=== PATIENT | male | born 1945 | race Caucasian/White ===

== ENCOUNTER 2019-10-02 10:46 | Observation (INO) ==
[2019-10-02 12:02] LABS: Immature Granulocytes % 0.9 % (0-4); Mean Corpuscular Volume 97.3 fL (83.0-100.0)
[2019-10-02 12:04] LABS: BUN/Creatinine Ratio 9 (6-26); Basophils # 0.1 K/mcL (0.0-0.2); Basophils % 2.1 %; Blood Urea Nitrogen 28 mg/dL (8-23); Calcium 8.1 mg/dL (8.6-10.3); Carbon Dioxide 21 mEq/L (23-29); Chloride 108 mEq/L (98-107); Eosinophils # 0.2 K/mcL (0.0-0.6); Eosinophils % 6.8 %; Glucose 88 mg/dL (70-105); Hematocrit 28.7 % (37.5-50.1); Hemoglobin 9.2 g/dL (12.9-16.9); Immature Platelets 7.9 % (1.1-6.1); Lymphocytes # 0.7 K/mcL (0.6-4.6); Lymphocytes % 19.2 %; Mean Corpuscular HGB Conc 32.1 g/dL (31.6-35.5); Mean Corpuscular Hemoglobin 31.2 pg (28.0-33.3); Mean Platelet Volume 14.4 fL (9.4-12.4); Monocytes # 0.6 K/mcL (0.0-1.3); Monocytes % 16.3 %; Neutrophils # 1.9 K/mcL (1.6-8.9); Osmolality,Calculated 293 (280-300); Potassium 4.1 mEq/L (3.5-5.1); Red Blood Count 2.95 M/mcL (4.19-5.50); Red Cell Distribution Width 15.5 % (11.5-14.5); Segmented Neutrophils % 54.7 %; Sodium 139 mEq/L (136-145); Troponin I < 0.03 ng/mL (< 0.04); White Blood Count 3.4 K/mcL (4.3-11.1); eGFR For African Americans 25 (> 60); eGFR For Non-African Americans 21 (> 60)
[2019-10-02 12:31] LABS: Platelet Count 38 K/mcL (140-400)
[2019-10-02] MEDS ORDERED: Naloxone 0.4 MG/ML INJ IVP PRN (14:47)
[2019-10-02] MEDS ORDERED: 0.9 % Sodium Chloride 1,000 ML IVC SCH (15:00)
[2019-10-02] MEDS: *HR* Heparin 5,000 UNIT/ML VIAL SQ SCH (16:30)
[2019-10-03 01:55] LABS: Red Cell Distribution Width 15.5 % (11.5-14.5)
[2019-10-03 01:57] LABS: Hematocrit 25.1 % (37.5-50.1); Hemoglobin 8.1 g/dL (12.9-16.9); Immature Platelets 9.9 % (1.1-6.1); Lymphocytes # 0.5 K/mcL (0.6-4.6); Mean Corpuscular HGB Conc 32.3 g/dL (31.6-35.5); Mean Corpuscular Hemoglobin 30.7 pg (28.0-33.3); Mean Corpuscular Volume 95.1 fL (83.0-100.0); Red Blood Count 2.64 M/mcL (4.19-5.50); White Blood Count 2.1 K/mcL (4.3-11.1)
[2019-10-03 02:21] LABS: Calcium 7.5 mg/dL (8.6-10.3); Magnesium 1.3 mg/dL (1.6-2.6); Phosphorous 3.4 mg/dL (2.7-4.5)
[2019-10-03 02:28] LABS: Platelet Count 38 K/mcL (140-400)
[2019-10-03 04:15] LABS: Anisocytosis 1+ (Not Present); Eosinophils # 0.1 K/mcL (0.0-0.6); Monocytes # 0.1 K/mcL (0.0-1.3); Neutrophils # 1.4 K/mcL (1.6-8.9); Platelet Estimate Marked Decrease (Normal)
[2019-10-03] MEDS: *HR* Heparin 5,000 UNIT/ML VIAL SQ SCH (05:25)
[2019-10-03 09:16] LABS: Thyroid Stimulating Hormone 10.002 mcIU/mL (0.340-5.600)
[2019-10-03] MEDS: Acyclovir 200 MG CAPSULE PO SCH (20:15)
[2019-10-03] MEDS: Metoprolol XL (24 HR) Succ 50 MG TAB.ER.24H PO SCH (20:15)
[2019-10-03] MEDS ORDERED: Mirtazapine 15 MG TABLET PO SCH (21:00)
[2019-10-03] MEDS ORDERED: Gabapentin 100 MG CAPSULE PO SCH (21:00)
[2019-10-04 04:09] LABS: Magnesium 1.7 mg/dL (1.6-2.6); Potassium 4.1 mEq/L (3.5-5.1)
[2019-10-04 04:15] LABS: Mean Corpuscular Volume 99.2 fL (83.0-100.0); Red Cell Distribution Width 15.6 % (11.5-14.5); White Blood Count 2.1 K/mcL (4.3-11.1)
[2019-10-04 04:16] LABS: Hematocrit 24.5 % (37.5-50.1); Hemoglobin 7.7 g/dL (12.9-16.9); Immature Platelets 6.9 % (1.1-6.1); Mean Corpuscular HGB Conc 31.4 g/dL (31.6-35.5); Mean Corpuscular Hemoglobin 31.2 pg (28.0-33.3); Mean Platelet Volume 13.3 fL (9.4-12.4); Red Blood Count 2.47 M/mcL (4.19-5.50)
[2019-10-04 04:22] LABS: Platelet Count 49 K/mcL (140-400)
[2019-10-04 04:58] LABS: Eosinophils # 0.1 K/mcL (0.0-0.6); Lymphocytes # 0.8 K/mcL (0.6-4.6); Monocytes # 0.3 K/mcL (0.0-1.3); Neutrophils # 0.8 K/mcL (1.6-8.9); Platelet Estimate Decreased (Normal)
[2019-10-04] MEDS: Metoprolol XL (24 HR) Succ 50 MG TAB.ER.24H PO SCH (08:59)
[2019-10-04] MEDS ORDERED: Venlafaxine XR (24 HR) 75 MG CAP.ER.24H PO SCH (09:00)
[2019-10-04] MEDS ORDERED: (Lenalidomide [Revlimid] 5 MG) PO SCH (09:00)
[2019-10-04] MEDS ORDERED: Metoprolol XL (24 HR) Succ 50 MG TAB.ER.24H PO SCH (09:00)
[2019-10-04] MEDS: Acyclovir 200 MG CAPSULE PO SCH (09:04)
[2019-10-04] MEDS ORDERED: 0.9 % Sodium Chloride 250 ML ONE (13:06)
[2019-10-04 15:59] VITALS: BP 124/61
== END 2019-10-04 17:03 | disposition home or self-care (01) ==
LOC: EMEROOARM 10:46 → 2NENU 10:46 → SUATTDRO 14:47 → 2NENU 15:30
PROVIDERS: ADMIT Internal Medicine; ATTEND Internal Medicine

== ENCOUNTER 2021-01-18 09:03 | Observation (INO) ==
[2021-01-18] MEDS ORDERED: Nitroglycerin 0.4 MG TAB.SUBL SL PRN (09:07)
[2021-01-18 09:57] LABS: Eosinophils % 6.3 %; Mean Corpuscular Volume 103.5 fL (83.0-100.0); Monocytes % 13.8 %
[2021-01-18 09:59] LABS: Basophils # 0.1 K/mcL (0.0-0.2); Basophils % 1.5 %; Eosinophils # 0.3 K/mcL (0.0-0.6); Hematocrit 29.5 % (37.5-50.1); Hemoglobin 9.3 g/dL (12.9-16.9); Immature Granulocytes % 0.6 % (0-4); Immature Platelets 6.7 % (1.1-6.1); Lymphocytes # 0.8 K/mcL (0.6-4.6); Mean Corpuscular HGB Conc 31.5 g/dL (31.6-35.5); Mean Corpuscular Hemoglobin 32.6 pg (28.0-33.3); Monocytes # 0.7 K/mcL (0.0-1.3); Red Blood Count 2.85 M/mcL (4.19-5.50); Red Cell Distribution Width 14.6 % (11.5-14.5); Segmented Neutrophils % 61.8 %; White Blood Count 4.8 K/mcL (4.3-11.1)
[2021-01-18] MEDS ORDERED: Ondansetron 4 MG/2 ML VIAL IVP ONE (10:00)
[2021-01-18] MEDS ORDERED: *HR* FentaNYL (PF) 100 MCG/2 ML VIAL IVP ONE (10:00)
[2021-01-18 10:01] LABS: Platelet Count 81 K/mcL (140-400)
[2021-01-18 10:04] LABS: INR 1.2; Prothrombin Time 13.9 Seconds (9.4-12.1)
[2021-01-18 10:23] LABS: BUN/Creatinine Ratio 8 (6-26); Blood Urea Nitrogen 20 mg/dL (8-23); Calcium 4.1 mg/dL (8.6-10.3); Carbon Dioxide 22 mEq/L (23-29); Chloride 107 mEq/L (98-107); Glucose 94 mg/dL (70-105); Osmolality,Calculated 294 (280-300); Potassium 3.7 mEq/L (3.5-5.1); Sodium 141 mEq/L (136-145); Troponin I < 0.03 ng/mL (< 0.04); eGFR For African Americans 29 (> 60); eGFR For Non-African Americans 24 (> 60)
[2021-01-18] MEDS: Calcium Gluconate 1gm/50mL 1 GM/50 ML BAG IVPB SCH ×5 (11:12→20:04)
[2021-01-18 11:13] LABS: Albumin 3.4 g/dL (3.5-5.7); Albumin/Globulin Ratio 1.3 (1.1-2.2); Bilirubin,Indirect 0.3 mg/dL (0.0-1.0); Bilirubin,Total 0.3 mg/dL (0.3-1.0); Globulin 2.7 g/dL (2.4-3.5); Total Protein 6.1 g/dL (6.4-8.9)
[2021-01-18] MEDS ORDERED: Naloxone 0.4 MG/ML INJ IVP PRN (11:39)
[2021-01-18] MEDS ORDERED: lisinopriL 5 MG TABLET PO SCH (12:00)
[2021-01-18 12:10] LABS: Magnesium 1.1 mg/dL (1.6-2.6); Phosphorous 2.1 mg/dL (2.7-4.5)
[2021-01-18] MEDS: Metoprolol XL (24 HR) Succ 25 MG TAB.ER.24H PO SCH (13:49)
[2021-01-18] MEDS ORDERED: *HR* Promethazine 25 MG/ML VIAL IM PRN (14:31)
[2021-01-18] MEDS ORDERED: Perflutren Lipid Microsphere 1.3 ML in 0.9 % Sodium Chloride 8.7 ML IVP PRN (14:36)
[2021-01-18] MEDS ORDERED: Aspirin 325 MG TABLET PO ONE (14:48)
[2021-01-18] MEDS: polyethylene glycoL 3350 17 GM POWD.PACK PO SCH (15:24)
[2021-01-18] MEDS: Pantoprazole 40 MG VIAL IVP SCH (15:32)
[2021-01-18] MEDS: *HR* Heparin 5,000 UNIT/ML VIAL SQ SCH (16:37)
[2021-01-18 16:58] LABS: BUN/Creatinine Ratio 9 (6-26); Blood Urea Nitrogen 23 mg/dL (8-23); Calcium 4.9 mg/dL (8.6-10.3); Carbon Dioxide 21 mEq/L (23-29); Chloride 108 mEq/L (98-107); Glucose 89 mg/dL (70-105); Magnesium 1.2 mg/dL (1.6-2.6); Osmolality,Calculated 295 (280-300); Sodium 141 mEq/L (136-145); Troponin I < 0.03 ng/mL (< 0.04); eGFR For African Americans 30 (> 60); eGFR For Non-African Americans 24 (> 60)
[2021-01-18 17:01] LABS: % Iron Saturation 24 % (20-55); Iron 60 mcg/dL (65-175); Transferrin 178 mg/dL (203-362)
[2021-01-18 17:05] LABS: Ferritin 307 ng/mL (20-250)
[2021-01-18] MEDS: Mirtazapine 15 MG TABLET PO SCH (20:02)
[2021-01-18] MEDS: Sennosides/Docusate Sodium TABLET PO SCH (20:02)
[2021-01-18] MEDS: Gabapentin 100 MG CAPSULE PO SCH (20:02)
[2021-01-18] MEDS ORDERED: Calcium Gluconate 1gm/50mL 1 GM/50 ML BAG IVPB ONE (23:06)
[2021-01-19 02:12] LABS: Calcium 5.5 mg/dL (8.6-10.3); Magnesium 2.3 mg/dL (1.6-2.6); Phosphorous 4.9 mg/dL (2.7-4.5)
[2021-01-19] MEDS ORDERED: Calcium Gluconate 1gm/50mL 1 GM/50 ML BAG IVPB ONE (03:40)
[2021-01-19] MEDS: Pantoprazole 40 MG VIAL IVP SCH ×2 (05:04→16:04)
[2021-01-19] MEDS: *HR* Heparin 5,000 UNIT/ML VIAL SQ SCH ×2 (05:04→16:04)
[2021-01-19] MEDS: Sennosides/Docusate Sodium TABLET PO SCH ×2 (08:16→21:05)
[2021-01-19] MEDS: Metoprolol XL (24 HR) Succ 25 MG TAB.ER.24H PO SCH (08:16)
[2021-01-19] MEDS: lisinopriL 5 MG TABLET PO SCH (08:16)
[2021-01-19] MEDS: Venlafaxine XR (24 HR) 75 MG CAP.ER.24H PO SCH (08:16)
[2021-01-19] MEDS: Cyanocobalamin (B-12) 1,000 MCG TABLET PO SCH (08:16)
[2021-01-19] MEDS: Magnesium Oxide 400 MG TABLET PO SCH (08:17)
[2021-01-19] MEDS: polyethylene glycoL 3350 17 GM POWD.PACK PO SCH (08:17)
[2021-01-19] MEDS: Calcium Gluconate 1gm/50mL 1 GM/50 ML BAG IVPB SCH ×3 (08:17→20:59)
[2021-01-19] MEDS: LENALIDOMIDE 5 MG PO SCH ×2 (11:55→12:00)
[2021-01-19] MEDS ORDERED: Ondansetron 4 MG/2 ML VIAL IVP PRN (11:55)
[2021-01-19 15:35] LABS: Albumin 3.3 g/dL (3.5-5.7); Albumin/Globulin Ratio 1.3 (1.1-2.2); Bilirubin,Total 0.3 mg/dL (0.3-1.0); Calcium 5.9 mg/dL (8.6-10.3); Globulin 2.6 g/dL (2.4-3.5); Total Protein 5.9 g/dL (6.4-8.9)
[2021-01-19] MEDS ORDERED: Melatonin 3 MG TABLET PO PRN (16:11)
[2021-01-19 19:28] LABS: Bilirubin,Urine Negative (Negative); Blood,Urine Small (Negative); Clarity,Urine Clear (Clear); Color,Urine Light-Yellow (Yellow); Glucose,Urine (UA) Normal (Normal); Hyaline Casts,Urine Few per lpf (None Seen); Ketones,Urine Negative (Negative); Leukocyte Esterase,Urine Negative (Negative); Mucus,Urine Few per lpf (None-Few); Nitrite,Urine Negative (Negative); Protein,Urine 70 mg/dL (Neg-Trace); RBC,Urine 0-3 per hpf (0-3); Specific Gravity,Urine 1.026 (1.010-1.025); Squamous Epithelial Cell,Urine Few per hpf (None-Few); Urobilinogen,Urine Normal (Normal); WBC,Urine 0-3 per hpf (0-3)
[2021-01-19] MEDS: Acyclovir 200 MG CAPSULE PO SCH (21:04)
[2021-01-19] MEDS: Mirtazapine 15 MG TABLET PO SCH (21:04)
[2021-01-19] MEDS: Gabapentin 100 MG CAPSULE PO SCH (21:05)
[2021-01-20 03:39] LABS: VBG Ionized Calcium 0.79 mmol/L (1.15-1.35)
[2021-01-20 04:01] LABS: Albumin 3.1 g/dL (3.5-5.7); Albumin/Globulin Ratio 1.3 (1.1-2.2); Bilirubin,Total 0.4 mg/dL (0.3-1.0); Calcium 5.9 mg/dL (8.6-10.3); Globulin 2.4 g/dL (2.4-3.5); Potassium 4.2 mEq/L (3.5-5.1); Total Protein 5.5 g/dL (6.4-8.9)
[2021-01-20] MEDS: *HR* Heparin 5,000 UNIT/ML VIAL SQ SCH ×2 (05:17→17:32)
[2021-01-20] MEDS: Venlafaxine XR (24 HR) 75 MG CAP.ER.24H PO SCH (08:38)
[2021-01-20] MEDS: Sennosides/Docusate Sodium TABLET PO SCH ×2 (08:39→20:52)
[2021-01-20] MEDS: Cyanocobalamin (B-12) 1,000 MCG TABLET PO SCH (08:39)
[2021-01-20] MEDS: polyethylene glycoL 3350 17 GM POWD.PACK PO SCH (08:39)
[2021-01-20] MEDS: Metoprolol XL (24 HR) Succ 25 MG TAB.ER.24H PO SCH (08:39)
[2021-01-20] MEDS: Acyclovir 200 MG CAPSULE PO SCH ×2 (08:39→20:52)
[2021-01-20] MEDS: lisinopriL 5 MG TABLET PO SCH (08:39)
[2021-01-20] MEDS: Calcium Gluconate 1gm/50mL 1 GM/50 ML BAG IVPB SCH ×5 (08:40→22:53)
[2021-01-20] MEDS: Magnesium Oxide 400 MG TABLET PO SCH (08:44)
[2021-01-20] MEDS ORDERED: calcitrioL 0.25 MCG CAPSULE PO SCH (09:00)
[2021-01-20 09:14] LABS: Magnesium 1.6 mg/dL (1.6-2.6)
[2021-01-20] MEDS: LENALIDOMIDE 5 MG PO SCH (10:16)
[2021-01-20 10:42] LABS: Red Cell Distribution Width 14.9 % (11.5-14.5)
[2021-01-20 10:44] LABS: Basophils % 1.1 %; Eosinophils # 0.3 K/mcL (0.0-0.6); Eosinophils % 7.2 %; Hemoglobin 9.8 g/dL (12.9-16.9); Immature Granulocytes % 1.1 % (0-4); Immature Platelets 6.6 % (1.1-6.1); Lymphocytes # 0.6 K/mcL (0.6-4.6); Lymphocytes % 16.4 %; Mean Corpuscular HGB Conc 31.6 g/dL (31.6-35.5); Mean Corpuscular Hemoglobin 32.9 pg (28.0-33.3); Mean Platelet Volume 11.5 fL (9.4-12.4); Monocytes # 0.4 K/mcL (0.0-1.3); Monocytes % 11.8 %; Neutrophils # 2.2 K/mcL (1.6-8.9); Red Blood Count 2.98 M/mcL (4.19-5.50); Segmented Neutrophils % 62.4 %; White Blood Count 3.5 K/mcL (4.3-11.1)
[2021-01-20 10:48] LABS: Platelet Count 86 K/mcL (140-400)
[2021-01-20] MEDS ORDERED: Ergocalciferol (VIT D2) 50,000 UNIT (1.25MG) CAP PO SCH (12:00)
[2021-01-20] MEDS: calcitrioL 0.25 MCG CAPSULE PO SCH (20:52)
[2021-01-20] MEDS: Gabapentin 100 MG CAPSULE PO SCH (20:52)
[2021-01-21 03:51] LABS: Mean Corpuscular Volume 103.6 fL (83.0-100.0); Red Cell Distribution Width 14.7 % (11.5-14.5)
[2021-01-21 03:53] LABS: Hematocrit 28.8 % (37.5-50.1); Hemoglobin 9.3 g/dL (12.9-16.9); Immature Platelets 6.2 % (1.1-6.1); Mean Corpuscular HGB Conc 32.3 g/dL (31.6-35.5); Mean Corpuscular Hemoglobin 33.5 pg (28.0-33.3); Mean Platelet Volume 12.1 fL (9.4-12.4); Red Blood Count 2.78 M/mcL (4.19-5.50); White Blood Count 3.1 K/mcL (4.3-11.1)
[2021-01-21 04:10] LABS: Albumin 3.4 g/dL (3.5-5.7); Calcium 7.4 mg/dL (8.6-10.3); Magnesium 1.9 mg/dL (1.6-2.6); Phosphorous 3.5 mg/dL (2.7-4.5); Potassium 4.2 mEq/L (3.5-5.1)
[2021-01-21] MEDS: *HR* Heparin 5,000 UNIT/ML VIAL SQ SCH (05:44)
[2021-01-21 07:09] VITALS: BP 131/63
[2021-01-21] MEDS: Acyclovir 200 MG CAPSULE PO SCH (09:06)
[2021-01-21] MEDS: Magnesium Oxide 400 MG TABLET PO SCH (09:07)
[2021-01-21] MEDS: lisinopriL 5 MG TABLET PO SCH (09:07)
[2021-01-21] MEDS: Metoprolol XL (24 HR) Succ 25 MG TAB.ER.24H PO SCH (09:07)
[2021-01-21] MEDS: Sennosides/Docusate Sodium TABLET PO SCH (09:07)
[2021-01-21] MEDS: calcitrioL 0.25 MCG CAPSULE PO SCH (09:08)
[2021-01-21] MEDS: Cyanocobalamin (B-12) 1,000 MCG TABLET PO SCH (09:10)
[2021-01-21] MEDS: Venlafaxine XR (24 HR) 75 MG CAP.ER.24H PO SCH (09:10)
[2021-01-21] MEDS: LENALIDOMIDE 5 MG PO SCH (09:10)
[2021-01-21] MEDS: polyethylene glycoL 3350 17 GM POWD.PACK PO SCH (09:10)
== END 2021-01-21 12:14 | disposition home or self-care (01) ==
LOC: 2NENU 09:03 → EMEROOARM 09:03 → SUATTDRO 12:16 → 2NENU 12:53
PROVIDERS: ADMIT Internal Medicine; ATTEND Internal Medicine